=== PATIENT | male | born 1965 | race Hispanic/Latino ===

== ENCOUNTER 2023-11-08 10:45 | Day surgery (SDC) | payer OTHER ==
[~2023-11-08] VITALS: Ht 172.7 cm; Wt 78.0 kg
[2023-11-08] MEDS ORDERED: LACTATED RINGER'S 1,000 ML IV ONE (11:03)
[2023-11-08] MEDS ORDERED: STERILE WATER FOR IRRIGATION 1,000 ML BTL IR ONE (13:20)
[2023-11-08 13:32] VITALS: BP 123/74
[2023-11-11] MEDS ORDERED: GLYCOPYRROLATE 0.2 MG/ML IV ONE (12:39)
[2023-11-11] MEDS ORDERED: PROPOFOL 500 MG/50 ML VIAL IV ONE (12:39)
[2023-11-11] MEDS ORDERED: LIDOCAINE HCL 2% 2ML SDV IV ONE (12:39)
== END 2023-11-08 13:42 | disposition home or self-care (01) | DRG 951 ==
LOC: ENDO 10:45
PROVIDERS: ATTEND Internal Medicine Gastroenterology
PROC: 0DJD8ZZ Inspection of Lower Intestinal Tract, Via Natural or Artificial Opening Endoscopic (ICD-10-PCS; principal; 2023-11-08)
DX: Z12.11 Encounter for screening for malignant neoplasm of colon (principal); K64.8 Other hemorrhoids